=== PATIENT | male | born 1995 | race Caucasian/White ===

== ENCOUNTER 2018-11-14 11:11 | Inpatient (IN) | payer OTHER ==
[~2018-11-14] VITALS: Ht 185.4 cm; Wt 81.6 kg
[~2018-11-14 11:11] MED LIST: FOLIC ACID 1 MG TAB PO SCH; MULTIVITAMINS/MINERALS THERAP 1 TAB PO SCH
[2018-11-14 11:51] LABS: HEMATOCRIT 40.8 % (42.0-52.0); HEMOGLOBIN 14.5 g/dl (13.5-17.5); MEAN CORPUSCULAR HEMOGLOBIN 32.2 pg (27.0-33.0); MEAN CORPUSCULAR HGB CONC 35.5 g/dl (32.0-36.5); MEAN CORPUSCULAR VOLUME 90.5 fl (80.0-96.0); PLATELET COUNT, AUTOMATED 199 10^3/uL (150-450); RED BLOOD COUNT 4.51 10^6/uL (4.30-6.10); WHITE BLOOD COUNT 8.3 10^3/uL (4.0-10.0)
[2018-11-14 12:34] LABS: ACETAMINOPHEN LEVEL < 2.0 UG/ML (10.0-30.0); ALBUMIN 4.2 GM/DL (3.2-5.2); ALT/SGPT 22 U/L (12-78); BILIRUBIN,DIRECT 0.3 MG/DL (0.0-0.2); BILIRUBIN,TOTAL 0.9 MG/DL (0.2-1.0); BLOOD UREA NITROGEN 13 MG/DL (7-18); CARBON DIOXIDE LEVEL 25 MEQ/L (21-32); CHLORIDE LEVEL 111 MEQ/L (98-107); CREATININE FOR GFR 0.93 MG/DL (0.70-1.30); ETHYL ALCOHOL (ETHANOL) < 0.003 % (0.000-0.010); GLOMERULAR FILTRATION RATE > 60.0 (>60); GLUCOSE, FASTING 81 MG/DL (70-100); POTASSIUM SERUM 3.6 MEQ/L (3.5-5.1); SALICYLATE LEVEL < 1.7 MG/DL (5.0-30.0); SODIUM LEVEL 142 MEQ/L (136-145); THYROID STIMULATING HORMONE 0.724 uIU/ML (0.358-3.740); TOTAL PROTEIN 7.1 GM/DL (6.4-8.2)
[2018-11-14 14:54] LABS: AMPHETAMINES LEVEL URINE NEGATIVE (NEGATIVE); BARBITURATES URINE NEGATIVE (NEGATIVE); BENZODIAZEPINES URINE NEGATIVE (NEGATIVE); CANNABINOIDS URINE NEGATIVE (NEGATIVE); COCAINE METABOLITE URINE NEGATIVE (NEGATIVE); METHADONE URINE NEGATIVE (NEGATIVE); OPIATES URINE NEGATIVE (NEGATIVE); PHENCYCLIDINE URINE NEGATIVE (NEGATIVE)
[2018-11-14] MEDS ORDERED: traZODone 50 MG TAB PO PRN ×2 (15:00→15:15)
[2018-11-14] MEDS ORDERED: ACETAMINOPHEN TAB 650MG DOSE (2X325MG) PO PRN ×2 (15:00→15:15)
[2018-11-14] MEDS ORDERED: OLANZapine ORAL DISINTEGRATING TAB 5MG PO PRN (15:00)
[2018-11-14] MEDS ORDERED: LORazepam 2 MG TAB PO PRN ×2 (15:00→15:15)
[2018-11-14] MEDS ORDERED: THIAMINE 100 MG TAB PO SCH (15:00)
[2018-11-14] MEDS ORDERED: MOM 30ML SUSPENSION UDC PO PRN ×2 (15:00→15:15)
[2018-11-14] MEDS ORDERED: MAALOX 30 ML SUSP *UDC PO PRN (15:15)
[2018-11-14] MEDS ORDERED: NICOTINE 21MG/24HR 1 EA TRANSDERMAL TD PRN (15:15)
[2018-11-14] MEDS: THIAMINE 100 MG TAB PO SCH ×2 (15:30→21:54)
[2018-11-14 16:21] VITALS: BP 132/80
[2018-11-14 16:45] VITALS: BP 132/80
[2018-11-14] MEDS: MULTIVITAMINS/MINERALS THERAP 1 TAB PO SCH (18:09)
[2018-11-14] MEDS: FOLIC ACID 1 MG TAB PO SCH (18:09)
[2018-11-15 06:54] VITALS: BP 127/60
[2018-11-15] MEDS: THIAMINE 100 MG TAB PO SCH ×2 (08:48→21:44)
[2018-11-15] MEDS: FOLIC ACID 1 MG TAB PO SCH (08:49)
[2018-11-15] MEDS: MULTIVITAMINS/MINERALS THERAP 1 TAB PO SCH (08:49)
[2018-11-15 09:37] VITALS: BP 127/60
--- NOTE | 2018-11-15 13:48 | MHHPEPDOC ---
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 He described that his therapist had called his who relayed additional concerns and wanted the patient to come to the ER for evaluation and treatment. He subsequently was admitted. He reports that he is not pleased with hospitals as he finds them "bad places to be." The patient describes that he has been struggling with depression, namely low mood, fatigue, loss of Interest, concentration problems as well as increasingly more elaborate engagement with suicidal thoughts. He additionally reports that at times he will have an impulsive moment where he will speed up his car. He is initially on interview somewhat irritable and defen sive, but relaxes more during the interview. Review Of Systems Depression: As above. Anxiety: The patient denies any excessive worry associated with physical symptoms. They deny any experience of discreet panic in the past. Madhuri: The patient denies any episodes of euphoria/dysphoria associated with decreased need for sleep, hedonism, talkatively or impulsivity lasting longer th an 5 days. Psychotic: The patient denies any experiences of auditory or visual hallucinations. They deny any episodes of paranoia or delusional thinking in the past Trauma: The patient denies any traumatic events associated with nightmares or intrusive thoughts. Borderline: Not screened at this time. Past Psychiatric History The patient reports no history of psychiatric admissions, medication trials. The patient reports having followup with [facility] for therapy and had been considering starting an antidepressant. Denies any history of suicide attempts. Allergies Please see below. Family Psychiatric History The patient denies/is unaware any history of mental health history including addictions and suicide. 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 He denies a history of abuse as a child or witnessing any severe violence. He currently lives with his . He describes being able to graduate high school and join the as he reported a family history of being in the . Substance Abuse History The patient denies any tobacco or illicit drug use, but does admit to recently drinking six pack a day of alcohol. Medical History Patient has no significant past medical history. Mental Status Examination General: Well dressed with good hygiene Speech: Spontaneous and fluid Thought processes: Linear and logical MSK: Smooth and coordinated gait, no signs of tremors or involuntary orofacial movements Thought content: Guarded and defensive Abstract reasoning, and computation: Intact Description of associations: Intact Description of abnormal or psychotic thoughts: Endorsing some thoughts of how he might end his life, but states that he has no intention to do so. Denies any homicidal ideations. Denies any auditory or visual hallucination. Does not appear to be endorsing any bizarre or paranoid ideation. Judgment: fair Insight: fair Orientation: Alert and orientated 3 Cognition: Grossly normal Recent and remote memory: Intact Attention span and concentration: Intact Fund of knowledge: Adequate Mood: "okay" Affect: Mildly irritable with a constricted range Diagnoses Major depressive disorder, severe. Alcohol use disorder, unspecified. 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 He is emphatic that he never would have a cted on these and had simply talked about his thoughts related to it to his therapist. He describes that he does not want to be in the hospital, but reports his is his "world" and wish to listen to her advice. Disposition The patient will need an inpatient admission lasting longer than two midnights due to the severity of his depression and recent suicidal thoughts as well as alcohol use. Problem List 1. Depression. 2. Risk for suicide. 3. Substance use. Initial Treatment Plan 1. Patient was admitted on a 9.39 legal status. 2. Complete history was obtained. 3. With patients permission, family will be contacted and database will be expanded. 4. Patients medication regimen will be reviewed and changed accordingly. 5. Patient will be provided with protected environment. 6. Patient will be treated with individual, group, and milieu therapies. 7. Patient will receive supportive psych-education. 8. Discharge planning will commence immediately. 9. Outpatient follow-up treatment will be strongly recommended. 10. The initial treatment plan will focus initially on: Beginning alcohol withdrawal protocol, which was started the previous evening. Discussed antidepressant regimens and gave patient choice between a standard SSRI and Wellbutrin. The patient describes that he was concerned about the potential for sexual side effects and elected to try Wellbutrin. Explained the risks and benefits as well as potential side effects of Wellbutrin. Estimated Length Of Stay 4 days. Time Spent 45 minutes. Saturday Vital Signs Vital Signs Date Time Temp Pulse Resp B/P (MAP) Pulse Ox O2 Delivery O2 Flow Rate FiO2 11/15/18 09:37 69 127/60 11/15/18 06:54 97.5 12 11/14/18 16:21 99 11/14/18 11:17 Room Air Medications No Active Prescriptions or Reported Meds Allergies Coded Allergies: diphenhydramine (Verified Allergy, Mild, rash/nausea, 11/14/18) FLAVIO SCHNEIDER DO Nov 15, 2018 13:48
[2018-11-15] MEDS ORDERED: buPROPion **XL** TABLET 150MG (WELLBUTRIN XL) PO ONE (14:00)
[2018-11-15 17:35] VITALS: BP 121/72
[2018-11-15 18:00] VITALS: BP 121/72
--- NOTE | 2018-11-15 19:01 | HPEPDOC ---
General Date of Admission Nov 14, 2018 at 14:57 Date of Service: Nov 15, 2018 Chief Complaint The patient is a 22-year-old male admitted with a reason for visit of Depression. Source: Patient Exam Limitations: No limitations Timing/Duration: Unsure Severity: Mild Associated Symptoms: Unobtainable History of Present Illness This is a 22-year-old male admitted to the mental health unit for suicidal ideation. He had not made a discrete attempt, but had discussed it with others. Services were notified and he was brought to the mental health unit for eval and treatment. Exacerbated was the patient had apparently learned that his unborn child is going to have congenital heart disease and likely not survive. Home Medications No Active Prescriptions or Reported Meds Allergies Coded Allergies: diphenhydramine (Verified Allergy, Mild, rash/nausea, 11/14/18) Past Medical History Medical History None, aside from Plantar fasciitis Surgical History Surgical history includes right hand fracture repair, left index finger repair, right inguinal hernia repair Family History Patient denies any remarkable family history of chronic disease. Social History * Smoker: Denies Alcohol: other (patient is drinking at least a 6 pack per day or more. He states he's been doing this for the past 3 weeks. He does not feel it is a problem.) Drugs: denies Recent Travel/Sick Contacts: Denies: Recent travel, Recent sick contacts Psychosocial History: Depression The patient is in the [employer]. 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 A-FIB/CHADSVASC A-FIB History Current/History of A-Fib/PAF?: No Current PO Anticoag Therapy: No Review of Systems Other systems Review of 10 systems is otherwise negative except as stated in the brief presentation Physical Examination General Exam: Positive: Alert, Cooperative, No Acute Distress Eye Exam: Positive: PERRLA, Conjunctiva & lids normal, EOMI ENT Exam: Positive: Atraumatic, Mucous membr. moist/pink, Pharynx Normal, Tongue Midline, Nares Patent Neck Exam: Positive: Supple; Negative: JVD, thyromegaly Chest Exam: Positive: Clear to auscultation, Normal air movement Heart Exam: Positive: Rate Normal, Regular Rhythm, Normal S1, Normal S2; Negative: Murmurs, Rubs Abdomen Exam: Positive: Normal bowel sounds, Soft; Negative: Tenderness, Hepatospenomegaly Extremity Exam: Positive: Normal pulses; Negative: Clubbing, Cyanosis, Edema Skin Exam: Positive: Nl turgor and temperature, Other skin issue (the patient does have some tattoos); Negative: Breakdown, Lesion Neuro Exam: Positive: Normal Gait, Normal Speech, Strength at 5/5 X4 ext, Sensation Intact, Cranial Nerves 3-12 NL Psych Exam: Positive: Oriented x 3, Other (depressed affect) Vital Signs Vital Signs Date Time Temp Pulse Resp B/P (MAP) Pulse Ox O2 Delivery O2 Flow Rate FiO2 11/15/18 18:00 98.2 65 18 121/72 (88) 11/14/18 16:21 99 11/14/18 11:17 Room Air Assessment/Plan The patient is admitted with suicidal ideation associated with acute depression. He did not make an attempt at this time. Patient is appropriately placed in the mental health unit for management. There are no acute medical problems, and so he will not require further management from us. Please do reconsult us if needed for medical issues. Plan / VTE VTE Prophylaxis Ordered?: No VTE Exclusion Mechanical Proph: Low Risk for VTE VTE Exclusion Pharmacological: At Low Risk for VTE DALLAS NICOLAS MD Nov 15, 2018 19:01
[2018-11-16 07:02] VITALS: BP 133/63
[2018-11-16 07:03] VITALS: BP 133/63
[2018-11-16] MEDS: MULTIVITAMINS/MINERALS THERAP 1 TAB PO SCH (08:12)
[2018-11-16] MEDS: THIAMINE 100 MG TAB PO SCH ×2 (08:12→21:21)
[2018-11-16] MEDS: buPROPion **XL** TABLET 150MG (WELLBUTRIN XL) PO SCH (08:12)
[2018-11-16] MEDS: FOLIC ACID 1 MG TAB PO SCH (08:12)
--- NOTE | 2018-11-16 17:34 | MHIPNPDOC ---
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 Interval History The patient's met with in his room today. He has attended some groups at times and is somewhat social but generally keeps to his room. He describes that he "hates hospitals" and wishes to be discharged. He describes that he's tolerating the Wellbutrin without any noticeable effects negative or positive. He describes that he is relieved that he's able to see his at least daily while on the unit. Staff have report no behavioral problems overnight. Review Of Systems The patient reports continued low mood and "stress" but he attributes this to the hospital environment. He describes that he feels fairly anxious while being here and is unable to parse that out from other endogenous sources. Denies any increased irritability or headache. Psychotherapy None on this visit. Vital Signs Reviewed. Mental Status Examination General: Well dressed with good hygiene Speech: Spontaneous and fluid Thought processes: Linear and logical MSK: Smooth and coordinated gait, no signs of tremors or involuntary orofacial movements Thought content: Somewhat guarded less so than yesterday Abstract reasoning, and computation: Intact Description of associations: Intact Description of abnormal or psychotic thoughts: Denies any suicidal or homicidal ideation. Denies any auditory or visual hallucinations. Does not appear to be responding to internal stimuli. Does not appear to be endorsing any bizarre or paranoid ideation. Judgment: fair Insight: fair Orientation: Alert and orientated 3 Cognition: Grossly normal Recent and remote memory: Intact Attention span and concentration: Intact Fund of knowledge: Adequate Mood: "okay" Affect: Euthymic with a full range Diagnoses Major depressive disorder, moderate. 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 The patient will be continued with Wellbutrin 150 mg extended-release at this time. He will follow up with Dr. Rhodes tomorrow where he was instructed that his disposition will ultimately reside in her opinion. Disposition The patient needs a further inpatient admission in order to further monitor his Wellbutrin start and to plan for a safe discharge. Time Spent 15 minutes face to face. Saturday Vital Signs Vital Signs Date Time Temp Pulse Resp B/P (MAP) Pulse Ox O2 Delivery O2 Flow Rate FiO2 11/16/18 07:03 65 133/63 11/16/18 07:02 99.1 12 11/14/18 16:21 99 11/14/18 11:17 Room Air Current Medications Current Medications Acetaminophen (Tylenol Tab) 650 mg Q6HP PRN PO HEADACHE or DISCOMFORT; Start 11/14/18 at 15:00; Stop 11/14/18 at 15:20; Status DC Acetaminophen (Tylenol Tab) 650 mg Q6HP PRN PO HEADACHE or DISCOMFORT; Start 11/14/18 at 15:15 Al Hydrox/Mg Hydrox/Simethicone (Mylanta) 30 ml Q4HP PRN PO HEARTBURN/INDIGESTION; Start 11/14/18 at 15:15 Bupropion HCl (Wellbutrin Xl) 150 mg DAILY PO Last administered on 11/16/18at 08:12; Start 11/16/18 at 09:00 Folic Acid (Folic Acid) 1 mg DAILY PO ; Start 11/14/18 at 09:00; Stop 11/14/18 at 15:20; Status DC Folic Acid (Folic Acid) 1 mg DAILY PO Last administered on 11/16/18at 08:12; Start 11/14/18 at 09:00 Lorazepam (Ativan) 2 mg ASDIRECTED PRN PO SEE PROTOCOL; Start 11/14/18 at 15:00; Stop 11/14/18 at 15:20; Status DC Lorazepam (Ativan) 2 mg ASDIRECTED PRN PO SEE PROTOCOL; Start 11/14/18 at 15:15 Magnesium Hydroxide (Milk Of Magnesia) 30 ml DAILYPRN PRN PO CONSTIPATION; Start 11/14/18 at 15:00; Stop 11/14/18 at 15:20; Status DC Magnesium Hydroxide (Milk Of Magnesia) 30 ml DAILYPRN PRN PO CONSTIPATION; Start 11/14/18 at 15:15 Multivitamins (Theragram-M) 1 tab DAILY PO ; Start 11/14/18 at 09:00; Stop 11/14/18 at 15:20; Status DC Multivitamins (Theragram-M) 1 tab DAILY PO Last administered on 11/16/18at 08 :12; Start 11/14/18 at 09:00 Nicotine (Nicoderm Cq 21mg) 1 patch DAILY PRN TD SMOKING CESSATION; Start 11/14/18 at 15:15 Olanzapine (ZyPREXA ZYDIS) 5 mg Q4HP PRN PO AGITATION; Start 11/14/18 at 15:00; Stop 11/14/18 at 15:20; Status DC Thiamine HCl (Thiamine HCl) 100 mg BID PO ; Start 11/14/18 at 15:00; Stop 11/17/18 at 09:01; Status Cancel Thiamine HCl (Thiamine HCl) 100 mg BID PO Last administered on 11/16/18at 08:12; Start 11/14/18 at 15:30; Stop 11/16/18 at 21:01 Trazodone HCl (Desyrel) 50 mg QHSP PRN PO INSOMNIA; Start 11/14/18 at 15:00; Stop 11/14/18 at 15:20; Status DC Trazodone HCl (Desyrel) 50 mg QHSP PRN PO INSOMNIA; Start 11/14/18 at 15:15 Allergies Coded Allergies: diphenhydramine (Verified Allergy, Mild, rash/nausea, 11/14/18) FLAVIO SCHNEIDER DO Nov 16, 2018 17:34
[2018-11-16 18:00] VITALS: BP 136/63
[2018-11-17 07:02] VITALS: BP 121/77
[2018-11-17 07:03] VITALS: BP 121/77
[2018-11-17] MEDS: FOLIC ACID 1 MG TAB PO SCH (09:00)
[2018-11-17] MEDS: MULTIVITAMINS/MINERALS THERAP 1 TAB PO SCH (09:00)
[2018-11-17] MEDS: buPROPion **XL** TABLET 150MG (WELLBUTRIN XL) PO SCH (09:08)
[2018-11-17] MEDS ORDERED: TRAZ-252 PO (12:02)
[2018-11-17] MEDS ORDERED: BUPR150T3 PO (12:02)
--- NOTE | 2018-11-17 12:03 | MHDSPDOC ---
[facility] Discharge Summary Discharge Summary DATE OF ADMISSION: Nov 14, 2018 at 2:57 pm DATE OF DISCHARGE: November 18, 2018 DISCHARGE DIAGNOSES: 1. 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 He described that his therapist had called his who relayed additional concerns and wanted the patient to come to the ER for evaluation and treatment. He subsequently was admitted. He reports that he is not pleased with hospitals as he finds them "bad places to be." The patient describes that he has been struggling with depression, namely low mood, fatigue, loss of Interest, concentration problems as well as increasingly more elaborate engagement with suicidal thoughts. He additionally reports that at times he will have an impulsive moment where he will speed up his car. He is initially on interview somewhat irritable and defensive, but relaxes more during the interview. CONSULTANTS INVOLVED: none TREATMENT AND PROGRESS ON THE UNIT :Pt was admitted to [facility], seen for psychiatric assessment and started on wellbutrin xl 150mg daily. He was provided trazodone 50mg qhs prn insomnia. Pt found his medications beneficial and tolerated them well. He attended groups daily during his stay. His symptoms improved with treatment. On day of discharge he denied depression, anxiety, insomnia, SI/HI, hallucinations, delusions. He is future oriented toward supportive his with of son that will of genetic anomaly and has accepted that he will . He was discharged home after [facility] meeting with follow-up at [facility]. He felt safe for discharge. DISCHARGE ASSESSMENT: Pt seen and states that his mood is "good" and that he just wants to go home to support his with of son that will of genetic anomaly and has accepted that he will . Motivated though to be present for dying son who will receive Palliative care after just to support him until he dies with his present to. States he slept well last night. Feels he is tolerating his medications and they're beneficial. He is attending groups and finding them helpful. He denies depression, anxiety, insomnia, SI/HI, hallucinations, delusions. Pt feels safe to be discharged home with his Homero. He will receive genetic testing with his regarding genetic mutations affecting ability to conceive healthy child in future, has appointment in [place]. Recommended to follow recommendation of fertility doctor in future whether IVF will be needed to conceive genetically healthy child which he agrees. MENTAL STATUS EXAMINATION ON DISCHARGE: Patient is a 22-year old male, who is clean and dressed in own clothing Speech is reg rate/rhythm/volume Language skills are good Thought processes including: linear, logical Thought content: Denies SI/HI, wants to support his , has accepted the fact that new born son will due to terminal genetic anomaly soon after Abstract reasoning, and computation: intact, appropriate Description of associations: appropriate Description of abnormal or psychotic thoughts: denies hallucinations, delusions Judgment: good Insight: good. Orientation to x3 Recent and remote memory:good Attention span and concentration: good Language: appropriate Fund of knowledge: average Mood: euthymic, full Affect: congruent MEDICATIONS ON DISCHARGE: wellbutrin xl 150mg daily trazodone 50mg qhs prn insomnia PLAN/FOLLOWUP ARRANGEMENTS: D/c home with [facility] with follow-up at [facility]. The amount of time spent in the coordination of care for this patient was approximately 30 minutes. Vital Signs/I&Os Vital Signs Date Time Temp Pulse Resp B/P (MAP) Pulse Ox O2 Delivery O2 Flow Rate FiO2 11/17/18 07:03 77 121/77 11/17/18 07:02 97.5 12 11/14/18 16:21 99 11/14/18 11:17 Room Air Medications Scheduled Bupropion Hcl (Bupropion Xl) 150 Mg Tab.er.24h, 150 MG PO DAILY for mood, #10 Scheduled PRN Trazodone HCl (Trazodone HCl) 50 Mg Tablet, 50 MG PO QHSP PRN for INSOMNIA, #10 Allergies Coded Allergies: diphenhydramine (Verified Allergy, Mild, rash/nausea, 11/14/18) MANUEL VALDEZ DO Nov 17, 2018 12:03 pm
--- NOTE | 2018-11-17 12:09 | MHIPNPDOC ---
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 He described that his therapist had called his who relayed additional concerns and wanted the patient to come to the ER for evaluation and treatment. He subsequently was admitted. He reports that he is not pleased with hospitals as he finds them "bad places to be." The patient describes that he has been struggling with depression, namely low mood, fatigue, loss of Interest, concentration problems as well as increasingly more elaborate engagement with suicidal thoughts. He additionally reports that at times he will have an impulsive moment where he will speed up his car. He is initially on interview somewhat irritable and defensive, but relaxes more during the interview. VITAL SIGNS: See below. NEW TEST RESULTS: See below. CURRENT MEDICATIONS: See below. MENTAL STATUS EXAMINATION: Patient is a 22-year old male, who is clean and dressed in own clothing Speech is reg rate/rhythm/volume Language skills are good Thought processes including: linear, logical Thought content: Denies SI/HI, wants to support his , has accepted the fact that new born son will due to terminal genetic anomaly soon after Abstract reasoning, and computation: intact, appropriate Description of associations: appropriate Description of abnormal or psychotic thoughts: denies hallucinations, delusions Judgment: good Insight: good. Orientation to x3 Recent and remote memory:good Attention span and concentration: good Language: appropriate Fund of knowledge: average Mood: euthymic, full Affect: congruent DIAGNOSES: Adjustment d/o with depressed mood ASSESSMENT:Pt seen and states that his mood is "good" and that he just wants to go home to support his with of son that will of genetic anomaly and has accepted that he will . Motivated though to be present for dying son who will receive Palliative care after just to support him until he dies with his present to. States he slept well last night. Feels he is tolerating his medications and they're beneficial. He is attending groups and finding them helpful. He denies depression, anxiety, insomnia, SI/HI, hallucinations, delusions. Pt feels safe to be discharged home with his Homero. He will receive genetic testing with his regarding genetic mutations affecting ability to conceive healthy child in future, has appointment in [place]. Recommended to follow recommendation of fertility doctor in future whether IVF will be needed to conceive genetically healthy child which he agrees. MANAGEMENT PLAN: d/c tomorrow with Homero wellbutrin xl 150mg daily trazodone 50mg qhs prn insomnia TIME SPENT: 30 minutes. Vital Signs Vital Signs Date Time Temp Pulse Resp B/P (MAP) Pulse Ox O2 Delivery O2 Flow Rate FiO2 11/17/18 07:03 77 121/77 11/17/18 07:02 97.5 12 11/14/18 16:21 99 11/14/18 11:17 Room Air Current Medications Current Medications Acetaminophen (Tylenol Tab) 650 mg Q6HP PRN PO HEADACHE or DISCOMFORT; Start 11/14/18 at 15:00; Stop 11/14/18 at 15:20; Status DC Acetaminophen (Tylenol Tab) 650 mg Q6HP PRN PO HEADACHE or DISCOMFORT; Start 11/14/18 at 15:15 Al Hydrox/Mg Hydrox/Simethicone (Mylanta) 30 ml Q4HP PRN PO HEARTBURN/INDIGESTION; Start 11/14/18 at 15:15 Bupropion HCl (Wellbutrin Xl) 150 mg DAILY PO Last administered on 11/17/18at 09:08; Start 11/16/18 at 09:00 Folic Acid (Folic Acid) 1 mg DAILY PO ; Start 11/14/18 at 09:00; Stop 11/14/18 at 15:20; Status DC Folic Acid (Folic Acid) 1 mg DAILY PO Last administered on 11/16/18at 08:12; Start 11/14/18 at 09:00 Lorazepam (Ativan) 2 mg ASDIRECTED PRN PO SEE PROTOCOL; Start 11/14/18 at 15:00; Stop 11/14/18 at 15:20; Status DC Lorazepam (Ativan) 2 mg ASDIRECTED PRN PO SEE PROTOCOL; Start 11/14/18 at 15:15 Magnesium Hydroxide (Milk Of Magnesia) 30 ml DAILYPRN PRN PO CONSTIPATION; Start 11/14/18 at 15:00; Stop 11/14/18 at 15:20; Status DC Magnesium Hydroxide (Milk Of Magnesia) 30 ml DAILYPRN PRN PO CONSTIPATION; Start 11/14/18 at 15:15 Multivitamins (Theragram-M) 1 tab DAILY PO ; Start 11/14/18 at 09:00; Stop 11/14/18 at 15:20; Status DC Multivitamins (Theragram-M) 1 tab DAILY PO Last administered on 11/16/18at 08:12; Start 11/14/18 at 09:00 Nicotine (Nicoderm Cq 21mg) 1 patch DAILY PRN TD SMOKING CESSATION; Start 11/14/18 at 15:15 Olanzapine (ZyPREXA ZYDIS) 5 mg Q4HP PRN PO AGITATION; Start 11/14/18 at 15:00; Stop 11/14/18 at 15:20; Status DC Thiamine HCl (Thiamine HCl) 100 mg BID PO ; Start 11/14/18 at 15:00; Stop 11/17/18 at 09:01; Status Cancel Thiamine HCl (Thiamine HCl) 100 mg BID PO Last administered on 11/16/18at 21:21; Start 11/14/18 at 15:30; Stop 11/16/18 at 21:01; Status DC Trazodone HCl (Desyrel) 50 mg QHSP PRN PO INSOMNIA; Start 11/14/18 at 15:00; Stop 11/14/18 at 15:20; Status DC Trazodone HCl (Desyrel) 50 mg QHSP PRN PO INSOMNIA; Start 11/14/18 at 15:15 Allergies Coded Allergies: diphenhydramine (Verified Allergy, Mild, rash/nausea, 11/14/18) MANUEL VALDEZ DO Nov 17, 2018 12:09 pm
[2018-11-17 16:48] VITALS: BP 132/73
[2018-11-17 18:16] VITALS: BP 132/73
[2018-11-18 06:47] VITALS: BP 125/65
[2018-11-18] MEDS: MULTIVITAMINS/MINERALS THERAP 1 TAB PO SCH (09:00)
[2018-11-18] MEDS: FOLIC ACID 1 MG TAB PO SCH (09:00)
[2018-11-18] MEDS: buPROPion **XL** TABLET 150MG (WELLBUTRIN XL) PO SCH (09:18)
== END 2018-11-18 10:15 | disposition home or self-care (01) | DRG 881 ==
LOC: M ED 11:11 → M ED INP 14:57 → M PSY 16:10
PROVIDERS: ADMIT Psychiatry & Neurology Addiction Medicine; ATTEND Psychiatry & Neurology Psychiatry
DX: F43.21 Adjustment disorder with depressed mood (principal); R45.851 Suicidal ideations